=== PATIENT | male | born 1995 | race Caucasian/White ===

== ENCOUNTER 2017-01-05 05:15 | Emergency (ER) | payer OTHER ==
[2017-01-05 05:21] VITALS: BP 127/86; PULSE 103; RESP 16; TEMP 98.2; O2SAT 96
[2017-01-05] MEDS ORDERED: LORazepam 1 MG TAB ONE (06:00)
[2017-01-05] MEDS ORDERED: LORazepam 1 MG TAB PO ONE (06:01)
--- NOTE | 2017-01-05 06:32 | EDPHY ---
ED Progress Note Narrative: The patient decided that he did not want medical evaluation after speaking with his mother and the nurse. I explained to the patient that because he is having chest pain and this is a high-risk complaint he should stay for evaluation. However he feels that his pain is related to anxiety and now that his anxiety is subsided actually feeling much better. He would like to go home with Mother and we will honor that request.
== END 2017-01-05 06:39 | disposition left against medical advice (07) ==
DX: Z53.21 Procedure and treatment not carried out due to patient leaving prior to being seen by health care provider (principal)